=== PATIENT | female | born 1970 | race Caucasian/White ===

== ENCOUNTER → 2025-08-09 12:22 | Outpatient (CLI) | payer OTHER, SELFPAY ==
--- NOTE | 2025-08-09 12:23 | DI.RAD.S_ITS ---
PROCEDURE: XR KNEE LT 3V INDICATIONS: Left lateral knee pain TECHNIQUE: 3 views of the knee were acquired. COMPARISON: None. FINDINGS: Bones: No fractures or dislocations. No suspicious bony lesions. Soft tissues: No joint effusion. No suspicious soft tissue calcifications. IMPRESSION: Mild effusion. No visualized acute fracture or dislocation. However, if clinical concern and/or pain persist, short interval imaging followup in 7-10 days is recommended, as occult injury cannot be definitively excluded. Dictated by: Christina Cadet M.D. on 08/09/2025 at 13:04 Approved by: Christina Cadet M.D. on 08/09/2025 at 13:04
== END ==
PROVIDERS: PCP Family Medicine; Referring Provider Family Medicine; Visit Provider Chiropractor
DX: S83.92XA Sprain of unspecified site of left knee, initial encounter (principal); M25.462 Effusion, left knee
CPT/HCPCS: 73562